=== PATIENT | female | born 1940 | race Caucasian/White ===

== ENCOUNTER 2022-09-11 12:06 | Inpatient (IN) | payer OTHER, MEDICAID ==
[~2022-09-11] VITALS: Ht 162.6 cm; Wt 82.6 kg
[2022-09-11 12:13] VITALS: BP_SYST 124; PULSE 86; RESP 16; TEMP 97.9; O2SAT 93
[2022-09-11] MEDS ORDERED: cefTRIAXone 1 GM IVPB PREMIX 50 ML IV ONE (13:45)
[2022-09-11 14:02] LABS: HEMATOCRIT 38.9 % (36-48); HEMOGLOBIN 12.9 g/dL (12.0-16.0); MEAN CORPUSCULAR HEMOGLOBIN 29 pg (27-31); MEAN CORPUSCULAR HGB CONC 33 % (32-36); MEAN CORPUSCULAR VOLUME 89 fL (79.0-98.0); PLATELET COUNT (AUTO) 377 K/uL (130-430); RED BLOOD CELL COUNT(AUTO) 4.39 MIL/uL (4.2-6.2); RED CELL DISTRIBUTION WIDTH 14.4 % (9.0-15.0); WHITE BLOOD COUNT (AUTO) 21.9 K/uL (4.8-10.8)
[2022-09-11 14:06] LABS: PROTHROMBIN TIME 10.3 SECS (9.5-12.5)
[2022-09-11 14:17] LABS: BILIRUBIN,URINE NEGATIVE (NEGATIVE); CLARITY/URINE TURBID (CLEAR); COLOR,URINE YELLOW (YELLOW); GLUCOSE,URINE NEGATIVE (NEGATIVE); KETONES,URINE TRACE (NEGATIVE); LEUKOCYTE ESTERASE ,URINE TRACE (NEGATIVE); NITRITE, URINE POSITIVE (NEGATIVE); PROTEIN URINE NEGATIVE (NEGATIVE); UROBILINOGEN,URINE 0.2 (0.2-1.0)
[2022-09-11 14:23] LABS: ALANINE AMINOTRANSFERASE 17 U/L (12-78); ALBUMIN 2.7 g/dL (3.4-4.8); ANION GAP 8 (5-15); ASPARTATE AMINOTRANSFERASE 93 U/L (10-37); CALCIUM 9.6 mg/dL (8.4-11.0); CHLORIDE 103 mmol/L (98-107); CREATININE 1.12 mg/dL (0.55-1.30); GLUCOSE 138 mg/dL (70-99); TOTAL BILIRUBIN 0.4 mg/dL (0.0-1.0); UREA NITROGEN, BLOOD 36 mg/dL (8-21)
[2022-09-11 14:23] LABS: BLOOD, URINE TRACE (NEGATIVE)
[2022-09-11 14:34] LABS: BACTERIA,URINE MANY /HPF (None Seen)
[2022-09-11 14:41] LABS: ATYPICAL LYMPHOCYTES % 0 % (0-0); BAND % (MANUAL) 12 % (0-6); BASOPHILS % (MANUAL) 0 % (0-2); EOSINOPHILS % (MANUAL) 0 % (0-7); LYMPHOCYTES % (MANUAL) 6 % (20-46); MONOCYTES % (MANUAL) 4 % (0-11)
[2022-09-11] MEDS ORDERED: NACL 0.9% 1,000 ML IV ONE (14:45)
[2022-09-11] MEDS ORDERED: D5/0.45 NS 1,000 ML IV ONE (16:00)
[2022-09-11] MEDS ORDERED: ACET325T53 PO (16:11)
[2022-09-11] MEDS ORDERED: ALBMDI INH (16:11)
[2022-09-11] MEDS ORDERED: ACET160S2 PO (16:11)
[2022-09-11] MEDS ORDERED: LISI20TA30 PO (16:11)
[2022-09-11 17:15] VITALS: BP_SYST 156; PULSE 94; RESP 18; TEMP 97.1; O2SAT 94
[2022-09-12 00:19] VITALS: BP_SYST 167; PULSE 106; RESP 18; TEMP 98.4; O2SAT 94
[2022-09-12 08:30] VITALS: BP_SYST 150; PULSE 100; RESP 16; TEMP 98; O2SAT 96
[2022-09-12 09:00] VITALS: O2SAT 96
[2022-09-12] MEDS ORDERED: cefTRIAXone 1 GM VIAL IV SCH (09:00)
[2022-09-12 09:41] LABS: BASOPHILS % (AUTO) 0.1 % (0.0-2.0); HEMATOCRIT 36.3 % (36-48); HEMOGLOBIN 12.1 g/dL (12.0-16.0); LYMPHOCYTES % (AUTO) 6.7 % (20.5-51.5); MEAN CORPUSCULAR HEMOGLOBIN 29 pg (27-31); MEAN CORPUSCULAR HGB CONC 33 % (32-36); MEAN CORPUSCULAR VOLUME 88 fL (79.0-98.0); MONOCYTES # (AUTO) 0.7 K/uL (0.0-1.0); MONOCYTES % (AUTO) 4.4 % (1.7-9.3); NEUTROPHILS # (AUTO) 13.2 K/uL (1.8-7.7); NEUTROPHILS % (AUTO) 88.8 % (40.0-70.0); PLATELET COUNT (AUTO) 348 K/uL (130-430); RED BLOOD CELL COUNT(AUTO) 4.14 MIL/uL (4.2-6.2); RED CELL DISTRIBUTION WIDTH 14.4 % (9.0-15.0); WHITE BLOOD COUNT (AUTO) 14.9 K/uL (4.8-10.8)
[2022-09-12 09:50] LABS: ANION GAP 7 (5-15); CALCIUM 9.1 mg/dL (8.4-11.0); CHLORIDE 100 mmol/L (98-107); CREATININE 1.03 mg/dL (0.55-1.30); GLUCOSE 166 mg/dL (70-99); UREA NITROGEN, BLOOD 24 mg/dL (8-21)
[2022-09-12 09:58] LABS: ALANINE AMINOTRANSFERASE 19 U/L (12-78); ALBUMIN 2.4 g/dL (3.4-4.8); ASPARTATE AMINOTRANSFERASE 70 U/L (10-37); TOTAL BILIRUBIN 0.3 mg/dL (0.0-1.0)
[2022-09-12] MEDS ORDERED: CEFTRIAXONE SOD 1 GM/ DEXTROSE,ISO 50 ML PREMIX IV ONE (10:00)
[2022-09-12] MEDS ORDERED: lisinopriL 20 MG TABLET PO ONE (10:00)
[2022-09-12 11:22] VITALS: BP_SYST 131; PULSE 73; RESP 16; TEMP 97.3; O2SAT 95
[2022-09-12] MEDS: D5/0.45 NS 1,000 ML IV SCH (11:46)
[2022-09-12] MEDS: CEFTRIAXONE SOD 1 GM/ DEXTROSE,ISO 50 ML PREMIX IV SCH (13:56)
[2022-09-12 15:12] VITALS: BP_SYST 155; PULSE 109; RESP 16; TEMP 96.3; O2SAT 96
[2022-09-12 20:10] VITALS: BP_SYST 142; PULSE 100; RESP 16; TEMP 97; O2SAT 94
[2022-09-12] MEDS: ENOXAPARIN SODIUM 40 MG/0.4 ML SYRINGE SUBCUT SCH (20:36)
[2022-09-12] MEDS: VANCOMYCIN HCL 1,000 MG in NS 250 ML IV SCH (20:36)
[2022-09-13 00:24] VITALS: BP_SYST 145; PULSE 88; RESP 19; TEMP 97.7; O2SAT 95
[2022-09-13] MEDS: D5/0.45 NS 1,000 ML IV SCH (02:43)
[2022-09-13 07:40] VITALS: BP_SYST 160; PULSE 87; RESP 18; TEMP 97.9; O2SAT 94
[2022-09-13 08:00] VITALS: O2SAT 94
[2022-09-13] MEDS: lisinopriL 20 MG TABLET PO SCH (08:28)
[2022-09-13 11:16] VITALS: BP_SYST 160; PULSE 87; RESP 16; TEMP 97.1; O2SAT 95
[2022-09-13 15:22] VITALS: BP_SYST 152; PULSE 62; RESP 16; TEMP 97.3; O2SAT 94
[2022-09-13] MEDS: CEFTRIAXONE SOD 1 GM/ DEXTROSE,ISO 50 ML PREMIX IV SCH (15:55)
[2022-09-13] MEDS: VANCOMYCIN HCL 1,000 MG in NS 250 ML IV SCH (18:09)
[2022-09-13 20:00] VITALS: BP_SYST 153; PULSE 92; RESP 18; TEMP 97.9; O2SAT 95
[2022-09-13] MEDS: ENOXAPARIN SODIUM 40 MG/0.4 ML SYRINGE SUBCUT SCH (20:22)
[2022-09-14 00:41] VITALS: BP_SYST 172; PULSE 88; RESP 16; TEMP 97.9; O2SAT 96
[2022-09-14] MEDS: D5/0.45 NS 1,000 ML IV SCH ×2 (04:09→21:45)
[2022-09-14] MEDS: ACETAMINOPHEN 325 MG TABLET PO PRN ×2 (07:08→21:44)
[2022-09-14 08:00] VITALS: O2SAT 98
[2022-09-14] MEDS: lisinopriL 20 MG TABLET PO SCH (08:28)
[2022-09-14 11:25] VITALS: BP_SYST 153; PULSE 96; RESP 16; TEMP 97.1; O2SAT 94
[2022-09-14] MEDS: CEFTRIAXONE SOD 1 GM/ DEXTROSE,ISO 50 ML PREMIX IV SCH (15:23)
[2022-09-14 15:33] VITALS: BP_SYST 170; PULSE 95; RESP 16; TEMP 97; O2SAT 95
[2022-09-14 16:00] VITALS: BP_SYST 118; PULSE 72; RESP 18; TEMP 97.8; O2SAT 98
[2022-09-14] MEDS: VANCOMYCIN HCL 1,000 MG in NS 250 ML IV SCH (18:53)
[2022-09-14 20:30] VITALS: BP_SYST 137; PULSE 78; RESP 20; TEMP 98.5; O2SAT 96
[2022-09-14] MEDS: ENOXAPARIN SODIUM 40 MG/0.4 ML SYRINGE SUBCUT SCH (21:43)
[2022-09-15] VITALS: O2SAT 95
[2022-09-15 00:29] VITALS: BP_SYST 163; PULSE 84; RESP 20; TEMP 97.9; O2SAT 96
[2022-09-15 07:33] LABS: ANION GAP 11 (5-15); CALCIUM 9.2 mg/dL (8.4-11.0); CHLORIDE 105 mmol/L (98-107); CREATININE 0.97 mg/dL (0.55-1.30); GLUCOSE 104 mg/dL (70-99); UREA NITROGEN, BLOOD 23 mg/dL (8-21)
[2022-09-15 08:00] VITALS: BP_SYST 184; PULSE 96; RESP 18; TEMP 96.8; O2SAT 96
[2022-09-15 08:06] LABS: BASOPHILS % (AUTO) 0.4 % (0.0-2.0); EOSINOPHILS # (AUTO) 0.2 K/uL (0.0-0.4); EOSINOPHILS % (AUTO) 2.8 % (0.0-4.0); HEMATOCRIT 38.5 % (36-48); HEMOGLOBIN 12.6 g/dL (12.0-16.0); LYMPHOCYTES # (AUTO) 1.7 K/uL (1.0-5.5); LYMPHOCYTES % (AUTO) 19.8 % (20.5-51.5); MEAN CORPUSCULAR HEMOGLOBIN 29 pg (27-31); MEAN CORPUSCULAR HGB CONC 33 % (32-36); MEAN CORPUSCULAR VOLUME 89 fL (79.0-98.0); MONOCYTES # (AUTO) 0.9 K/uL (0.0-1.0); MONOCYTES % (AUTO) 10.6 % (1.7-9.3); NEUTROPHILS # (AUTO) 5.7 K/uL (1.8-7.7); NEUTROPHILS % (AUTO) 66.4 % (40.0-70.0); RED BLOOD CELL COUNT(AUTO) 4.32 MIL/uL (4.2-6.2); RED CELL DISTRIBUTION WIDTH 14.8 % (9.0-15.0); WHITE BLOOD COUNT (AUTO) 8.6 K/uL (4.8-10.8)
[2022-09-15] MEDS: lisinopriL 20 MG TABLET PO SCH (09:01)
[2022-09-15 09:47] LABS: PLATELET COUNT (AUTO) 319 K/uL (130-430)
[2022-09-15 13:48] VITALS: BP_SYST 152; PULSE 99; RESP 16; TEMP 98.3; O2SAT 96
[2022-09-15] MEDS: CEFTRIAXONE SOD 1 GM/ DEXTROSE,ISO 50 ML PREMIX IV SCH (14:10)
[2022-09-15] MEDS: D5/0.45 NS 1,000 ML IV SCH ×2 (14:15→23:38)
[2022-09-15 16:00] VITALS: BP_SYST 149; PULSE 85; RESP 17; TEMP 99.5; O2SAT 97
[2022-09-15 20:30] VITALS: BP_SYST 154; PULSE 82; RESP 18; TEMP 97.6; O2SAT 96
[2022-09-15] MEDS: ENOXAPARIN SODIUM 40 MG/0.4 ML SYRINGE SUBCUT SCH (20:57)
[2022-09-15] MEDS: ACETAMINOPHEN 325 MG TABLET PO PRN (20:57)
[2022-09-16] VITALS (7 sets, daily range): BP systolic 143–186; PULSE 74–91; RESP 18–20; TEMP 97.2–98.1; O2SAT 94–97
[2022-09-16] MEDS: lisinopriL 20 MG TABLET PO SCH (08:11)
[2022-09-16] MEDS ORDERED: cloNIDine HCL 0.2 MG TABLET PO ONE (17:45)
[2022-09-16] MEDS ORDERED: cloNIDine HCL 0.1 MG TABLET PO PRN (17:45)
[2022-09-16] MEDS: cloNIDine HCL 0.2 MG TABLET PO SCH (23:15)
[2022-09-16] MEDS: ENOXAPARIN SODIUM 40 MG/0.4 ML SYRINGE SUBCUT SCH (23:16)
[2022-09-16] MEDS: D5/0.45 NS 1,000 ML IV SCH (23:58)
[2022-09-17 00:13] VITALS: BP_SYST 139; PULSE 81; RESP 18; TEMP 97.2; O2SAT 95
[2022-09-17 08:00] VITALS: BP_SYST 127; PULSE 73; RESP 16; TEMP 97; O2SAT 96
[2022-09-17] MEDS: cloNIDine HCL 0.2 MG TABLET PO SCH (08:01)
[2022-09-17] MEDS: lisinopriL 20 MG TABLET PO SCH (08:02)
[2022-09-17 11:28] VITALS: BP_SYST 111; PULSE 57; RESP 16; TEMP 96.1; O2SAT 96
[2022-09-17 12:44] VITALS: BP_SYST 127; PULSE 73; RESP 16; TEMP 97; O2SAT 96
== END 2022-09-17 14:19 | DRG 853 ==
LOC: SED 12:06 → SMU 15:52
PROVIDERS: ADMIT Internal Medicine; ATTEND Internal Medicine
PROC: 0HBU0ZX Excision of Left Breast, Open Approach, Diagnostic (ICD-10-PCS; principal; 2022-09-13)
DX: A40.9 Streptococcal sepsis, unspecified (principal); G93.41 Metabolic encephalopathy; L98.498 Non-pressure chronic ulcer of skin of other sites with other specified severity; N39.0 Urinary tract infection, site not specified; J90 Pleural effusion, not elsewhere classified; E44.0 Moderate protein-calorie malnutrition; C50.912 Malignant neoplasm of unspecified site of left female breast; F03.90 Unspecified dementia, unspecified severity, without behavioral disturbance, psychotic disturbance, mood disturbance, and anxiety; E11.9 Type 2 diabetes mellitus without complications; F20.9 Schizophrenia, unspecified; J44.9 Chronic obstructive pulmonary disease, unspecified; I10 Essential (primary) hypertension; S21.002A Unspecified open wound of left breast, initial encounter; X58.XXXA Exposure to other specified factors, initial encounter; B96.20 Unspecified Escherichia coli [E. coli] as the cause of diseases classified elsewhere; D72.829 Elevated white blood cell count, unspecified; E66.9 Obesity, unspecified; Z79.1 Long term (current) use of non-steroidal anti-inflammatories (NSAID); Z79.899 Other long term (current) drug therapy; Y93.89 Activity, other specified; Y99.8 Other external cause status; Y92.89 Other specified places as the place of occurrence of the external cause; Z68.31 Body mass index [BMI] 31.0-31.9, adult
CPT/HCPCS: 36415; 71045; 71260-TC; 76376; 76642; 80048; 80053; 81000; 83605; 84484; 85007; 85025; 85027; 85610-TC; 85730-TC; 86300; 87040; 87081; 87086; 87186-TC; 88305; 88341; 88342; 88361; 93005; 93306; 96361; 96365; 97110-GP; 97116-GP; 97530-GP; 99291; J0696; J1650; J3370; J7050; J7060; Q9967